=== PATIENT | female | born 1990 ===

== ENCOUNTER 2019-05-20 16:37 | Emergency (ER) | payer OTHER ==
[2019-05-20 17:03] VITALS: BP 158/90
--- NOTE | 2019-05-20 17:15 | UC ---
General HPI - HPI Summary HPI Summary: She has been out of her blood pressure medication for a while and has had trouble connecting with her PCP who works part-time at [employer]. She comes in today hoping for short bridge until she can contact her PCP. She has no symptoms but had a dream last night and woke up afraid she might have a stroke. - History of Current Complaint Chief Complaint: UCMedRefill Stated Complaint: HIGH BLOOD PRESSURE Time Seen by Provider: 05/20/19 17:03 Hx Obtained From: Patient Hx Last Menstrual Period: Onset/Duration: Gradual Onset Current Severity: None Pain Intensity: 0 Associated Signs & Symptoms: Positive: Other - None - Allergy/Home Medications Allergies/Adverse Reactions: Allergies Allergy/AdvReac Type Severity Reaction Status Date / Time No Known Allergies Allergy Verified 05/20/19 17:05 Home Medications: Home Medications FLUoxetine* [PROzac*] 10 mg PO DAILY 05/20/19 [History Confirmed 05/20/19] Lisinopril TAB* [Prinivil TAB*] 10 mg PO DAILY 05/20/19 [History Confirmed 05/20] amLODIPine TAB* [Norvasc 5 mg TAB*] 5 mg PO DAILY 05/20/19 [History Confirmed ] PMH/Surg Hx/FS Hx/Imm Hx Cardiovascular History: Hypertension - Surgical History Surgical History: Yes Surgery Procedure, Year, and Place: tubes in ears as a child - Social History Alcohol Use: None Substance Use Type: None Smoking Status (MU): Never Smoked Tobacco Review of Systems All Other Systems Reviewed And Are Negative: Yes Constitutional: Positive: Negative - 6 Eyes: Positive: Negative Respiratory: Positive: Negative Cardiovascular: Positive: Negative Neurovascular: Positive: Negative Musculoskeletal: Positive: Negative Physical Exam - Summary Physical Exam Summary: She is nontoxic in appearance with stable vital signs. She is class III obese Triage Information Reviewed: Yes Appearance: Well-Appearing Vital Signs: Initial Vital Signs Temp 98.3 F 05/20/19 16:51 Pulse 81 05/20/19 16:51 Resp 16 05/20/19 16:51 BP 158/90 05/20/19 16:51 Pulse Ox 100 05/20/19 16:51 Vital Signs Reviewed: Yes Eye Exam: Normal ENT Exam: Normal Respiratory Exam: Normal Cardiovascular Exam: Normal Abdominal Exam: Normal Course/Dx - Course Course Of Treatment: I'm going to bridge her until she can get in to see her PCP. I did warn her that if she makes a habit of coming here at some point a provider may refuse to bridge her. - Diagnoses Provider Diagnosis: Hypertension Discharge ED - Sign-Out/Discharge Documenting (check all that apply): Patient Departure All imaging exams completed and their final reports reviewed: No Studies - Discharge Plan Condition: Stable Disposition: HOME Prescriptions: amLODIPine TAB* [Norvasc 5 mg TAB*] 5 mg PO DAILY #20 tab Lisinopril TAB* [Prinivil TAB 10 MG*] 10 mg PO DAILY #20 tab Patient Education Materials: Hypertension (ED), Heart Healthy Diet (ED) Referrals: Araceli NARAYANAN,Kamille Jimenez [Primary Care Provider] - - Billing Disposition and Condition Condition: STABLE Disposition: Home
== END 2019-05-20 17:19 | disposition home or self-care (01) ==
LOC: UCEAST 16:37
DX: I10 Essential (primary) hypertension (principal); Z79.899 Other long term (current) drug therapy
CPT/HCPCS: 99202; G0463